=== PATIENT | female | born 2000 | race African-American/Black ===

== ENCOUNTER 2022-05-12 20:12 | Emergency (ER) | payer MEDICAID, SELFPAY | END 2022-05-12 21:37 | disposition home or self-care (01) | LOC: ERS 20:12 | DX: R22.0 Localized swelling, mass and lump, head (principal) | CPT/HCPCS: 99283 ==

== ENCOUNTER 2023-04-01 22:43 | Emergency (ER) | payer MEDICAID, SELFPAY | END 2023-04-02 00:57 | disposition home or self-care (01) | LOC: ERS 22:43 | DX: G51.0 Bell's palsy (principal) | CPT/HCPCS: 99283 ==